=== PATIENT | female | born 1985 | race Two or more races ===

== ENCOUNTER 2019-10-29 14:36 | Emergency (ER) | payer MEDICAID ==
[2019-10-29] MEDS ORDERED: METOCLOPRAMIDE HCL ORAL SOLN 10 MG/10 ML UDCUP PO ONE (14:53)
[2019-10-29] MEDS ORDERED: ACETAMINOPHEN 325 MG TABLET PO ONE (14:53)
--- NOTE | 2019-10-29 14:56 | ER Document Report ---
ED Medical Screen (RME) - General Stated Complaint: VOMITING Time Seen by Provider: 10/29/19 14:49 Mode of Arrival: Ambulatory Information source: Patient, Relative - Notes: 33-year-old female G6, P5 presenting to the emergency department chief complaint of nausea and vomiting and headache in the setting of . Has been reports patient is approximately 8 weeks . He states she has been vomiting nonstop. Denies any vaginal bleeding. I have greeted and performed a rapid initial assessment of this patient. A comprehensive ED assessment and evaluation of the patient, analysis of test results and completion of the medical decision making process will be conducted by additional ED providers. I have specifically instructed the patient or family members with the patient to immediately return to any nursing staff should anything change in the patient's condition or with their chief complaint. - Related Data Allergies/Adverse Reactions: No Known Allergies Allergy (Unverified 10/29/19 14:50) Physical Exam - Vital signs Vitals: Temp Pulse Resp BP Pulse Ox 97.5 F 93 18 125/81 94 10/29/19 14:42 10/29/19 14:42 10/29/19 14:42 10/29/19 14:42 10/29/19 14:42 Course - Vital Signs Vital signs: Temp Pulse Resp BP Pulse Ox 97.5 F 93 18 125/81 94 10/29/19 14:42 10/29/19 14:42 10/29/19 14:42 10/29/19 14:42 10/29/19 14:42
[2019-10-29 15:36] LABS: ABSOLUTE LYMPHOCYTES (AUTO) 1.9 10^3/uL (0.5-4.7); ABSOLUTE MONOCYTES (AUTO) 0.4 10^3/uL (0.1-1.4); ABSOLUTE NEUT (AUTO) 3.9 10^3/uL (1.7-8.2); BASOPHILS % (AUTO) 0.3 % (0-2); EOSINOPHILS % (AUTO) 0.8 % (0-6); HEMATOCRIT 38.9 % (36.0-47.0); HEMOGLOBIN 13.6 g/dL (12.0-15.5); LYMPHOCYTES % (AUTO) 30.1 % (13-45); MEAN CORPUSCULAR HEMOGLOBIN 29.3 pg (27.0-33.4); MEAN CORPUSCULAR HGB CONC 35.1 g/dL (32.0-36.0); MEAN CORPUSCULAR VOLUME 84 fl (80-97); MONOCYTES % (AUTO) 6.6 % (3-13); PLATELET COUNT 397 10^3/uL (150-450); RED BLOOD COUNT 4.66 10^6/uL (3.72-5.28); RED CELL DISTRIBUTION WIDTH 13.4 % (11.5-14.0); SEGMENTED NEUTROPHILS % (AUTO) 62.2 % (42-78); TOTAL CELLS COUNTED % (AUTO) 100 %; WHITE BLOOD COUNT 6.3 10^3/uL (4.0-10.5)
[2019-10-29 15:45] LABS: APPEARANCE,URINE CLOUDY; BILIRUBIN,URINE NEGATIVE (NEGATIVE); COLOR,URINE AMBER; GLUCOSE, URINE 50 mg/dL (NEGATIVE); KETONES,URINE TRACE mg/dL (NEGATIVE); PROTEIN,URINE 100 mg/dL (NEGATIVE); URINE SPECIFIC GRAVITY 1.028
[2019-10-29 15:56] LABS: ALBUMIN 4.4 g/dL (3.5-5.0); ALKALINE PHOSPHATASE 62 U/L (38-126); ANION GAP 11 (5-19); ASPARTATE AMINO TRANSFERASE 19 U/L (14-36); BILIRUBIN,DIRECT 0.2 mg/dL (0.0-0.4); BILIRUBIN,TOTAL 0.6 mg/dL (0.2-1.3); BLOOD UREA NITROGEN 9 mg/dL (7-20); CALCIUM 9.9 mg/dL (8.4-10.2); CARBON DIOXIDE 26 mmol/L (22-30); CHLORIDE 100 mmol/L (98-107); GLUCOSE 105 mg/dL (75-110); POTASSIUM 4.2 mmol/L (3.6-5.0); TOTAL PROTEIN 8.2 g/dL (6.3-8.2)
--- NOTE | 2019-10-29 18:17 | ER Document Report ---
ED General - General Chief Complaint: Vomiting Stated Complaint: VOMITING Time Seen by Provider: 10/29/19 14:49 Mode of Arrival: Ambulatory Information source: Patient, Relative TRAVEL OUTSIDE OF THE [place] IN LAST 30 DAYS: No - HPI Onset: Other - over the last few days Onset/Duration: Gradual Quality of pain: No pain Severity: Moderate Pain Level: Denies Associated symptoms: Nausea, Vomiting, Other - acid reflux symptoms Exacerbated by: Other - vomiting Relieved by: Denies Similar symptoms previously: No Recently seen / treated by doctor: Yes Notes: 33 year old female who is 8 weeks here for intractable nausea and vomiting. The patient went to an outpatient clinic today and was given some multivitamins but no antiemetics. The patient says she is unable to keep anything down. The patient was given Reglan by a midlevel prior to me seeing her in the ER and the patient felt much better and was able to tolerate POs. The patient denies fevers, chills, sweats, vaginal bleeding, abdominal pain. - Related Data Allergies/Adverse Reactions: No Known Allergies Allergy (Unverified 10/29/19 14:50) Home Medications: B6 Past Medical History - General Information source: Patient, Relative - - Social History Smoking Status: Never Smoker Chew tobacco use (# tins/day): No Frequency of alcohol use: None Drug Abuse: None Lives with: Family Family History: Reviewed & Not Pertinent Patient has suicidal ideation: No Patient has homicidal ideation: No - Past Medical History Cardiac Medical History: Reports: None Pulmonary Medical History: Reports: None Neurological Medical History: Reports: None Review of Systems - Review of Systems Constitutional: No symptoms reported EENT: No symptoms reported Cardiovascular: No symptoms reported Respiratory: No symptoms reported Gastrointestinal: Nausea, Vomiting Genitourinary: No symptoms reported Female Genitourinary: No symptoms reported Musculoskeletal: No symptoms reported Skin: No symptoms reported Hematologic/Lymphatic: No symptoms reported Neurological/Psychological: No symptoms reported Physical Exam - Vital signs Vitals: Temp Pulse Resp BP Pulse Ox 97.5 F 93 18 125/81 94 10/29/19 14:42 10/29/19 14:42 10/29/19 14:42 10/29/19 14:42 10/29/19 14:42 - Notes Notes: GENERAL: Well-appearing, well-nourished and in no acute distress. HEAD: Atraumatic, normocephalic. EYES: Pupils equal round and reactive to light, extraocular movements intact, sclera anicteric, conjunctiva are normal. ENT: Nares patent, oropharynx clear without exudates. Moist mucous membranes. NECK: Normal range of motion, supple without lymphadenopathy or JVD. LUNGS: Breath sounds clear to auscultation bilaterally and equal. No wheezes rales or rhonchi. HEART: Regular rate and rhythm without murmurs, rubs or gallops. ABDOMEN: Soft, nontender, normoactive bowel sounds. No guarding, no rebound. No masses appreciated. EXTREMITIES: Normal range of motion, no pitting or edema. No clubbing or cyanosis. NEUROLOGICAL: Cranial nerves II through XII grossly intact. Normal speech, normal gait. PSYCH: Normal mood, normal affect. SKIN: Warm, Dry, normal turgor, no rashes or lesions noted. Course - Re-evaluation Re-evalutation: 10/29/19 18:23 The patient was apparently very nauseated and unable to keep anything down in the last few days. Patient felt better after Reglan which was given by a [facility] provider before I saw the patient. Spoke with the patient and her about nausea/vomiting in . Will prescribe short course of Zofran and have the patient use it only in extreme situations. Patient has no SALES ESTIMATOR at the moment so will refer to the SALES ESTIMATOR emulsion coater as an outpatient. Patient is already taking vitamins. 10/29/19 18:27 - Vital Signs Vital signs: Temp Pulse Resp BP Pulse Ox 97.5 F 93 18 125/81 94 10/29/19 14:42 10/29/19 14:42 10/29/19 14:42 10/29/19 14:42 10/29/19 14:42 - Laboratory Result Diagrams: 10/29/19 15:15 10/29/19 15:15 Laboratory results interpreted by me: 10/29/19 10/29/19 15:05 15:15 Sodium 136.8 L Beta HCG, Quant 956227.00 H Urine Protein 100 H Urine Glucose (UA) 50 H Urine Ketones TRACE H Urine Blood MODERATE H Urine Urobilinogen 2.0 H Discharge - Discharge Clinical Impression: Hyperemesis arising during Condition: Stable Disposition: HOME, SELF-CARE Instructions: Hyperemesis Gravidarum ([facility]) Additional Instructions: Only use Zofran for extreme nausea/vomiting. Drink plenty of fluids in the days to come. Follow up with an SALES ESTIMATOR doctor as soon as possible for care. If you dont have an SALES ESTIMATOR, you can follow up with Dr. Silva. Prescriptions: Ondansetron [Zofran Odt 4 mg Tablet] 1 tab PO Q8H PRN #10 tab.rapdis PRN Reason: For Nausea/Vomiting Referrals: GOKUL SILVA MD [ACTIVE PROVISIONAL STAFF] - Follow up as needed
[2019-10-29 18:40] VITALS: BP 104/74
== END 2019-10-29 18:37 | disposition home or self-care (01) ==
LOC: ER 14:36
DX: O21.0 Mild hyperemesis gravidarum (principal); Z3A.08 8 weeks gestation of pregnancy
CPT/HCPCS: 36415; 80053; 81001; 84702; 85025; 99284

== ENCOUNTER 2019-11-26 19:06 | Emergency (ER) | payer SELFPAY ==
[2019-11-26 19:16] VITALS: BP 117/80
--- NOTE | 2019-11-26 19:56 | ER Document Report ---
ED Medical Screen (RME) - General Chief Complaint: OB Problem (>20wk) Stated Complaint: OB PROBLEM Time Seen by Provider: 11/26/19 19:51 Mode of Arrival: Ambulatory Information source: Patient, Relative Notes: 34-year-old female presents emergency department approximately 10 weeks last menstrual period 09/03 G6, P5 with complaints of abdominal pain. Denies fever vomiting diarrhea. Denies vaginal bleeding. Denies pain with void. I have greeted and performed a rapid initial assessment of this patient. A comprehensive ED assessment and evaluation of the patient, analysis of test results and completion of the medical decision making process will be conducted by additional ED providers. TRAVEL OUTSIDE OF THE [place] IN LAST 30 DAYS: No - Related Data Allergies/Adverse Reactions: No Known Allergies Allergy (Verified 11/26/19 19:50) Physical Exam - Vital signs Vitals: Temp Pulse Resp BP Pulse Ox 98.0 F 92 14 117/80 96 11/26/19 19:13 11/26/19 19:13 11/26/19 19:13 11/26/19 19:13 11/26/19 19:13 Course - Vital Signs Vital signs: Temp Pulse Resp BP Pulse Ox 98.0 F 92 14 117/80 96 11/26/19 19:13 11/26/19 19:13 11/26/19 19:13 11/26/19 19:13 11/26/19 19:13
[2019-11-26 20:50] LABS: ALBUMIN 4.1 g/dL (3.5-5.0); ALKALINE PHOSPHATASE 76 U/L (38-126); ANION GAP 9 (5-19); ASPARTATE AMINO TRANSFERASE 23 U/L (14-36); BILIRUBIN,DIRECT 0.2 mg/dL (0.0-0.4); BILIRUBIN,TOTAL 0.4 mg/dL (0.2-1.3); BLOOD UREA NITROGEN 9 mg/dL (7-20); CALCIUM 9.4 mg/dL (8.4-10.2); CARBON DIOXIDE 28 mmol/L (22-30); CHLORIDE 100 mmol/L (98-107); GLUCOSE 96 mg/dL (75-110); POTASSIUM 4.1 mmol/L (3.6-5.0)
--- NOTE | 2019-11-26 21:17 | RADIOLOGY REPORT (SQ) ---
EXAM DESCRIPTION: US LESS THAN 14 WEEKS COMPLETED DATE/TME: 11/26/2019 19:54 CLINICAL HISTORY: 34 years, Female, abd pain, LMP 09/03 COMPARISON: None. TECHNIQUE: Axial 2-D grayscale images of the pelvis were acquired. Doppler was utilized. LIMITATIONS: None. FINDINGS: Uterus measures 13.6 x 11.9 x 12.5 cm in size. Cervix is closed, measuring 3.5 cm in length. An intrauterine gestational sac is identified with measurements as follows: [employer]-rump length: 6.7 cm heart rate: 157 bpm Yolk sac: Not visualized Estimated gestational age is 13 weeks and zero days for an estimated date of delivery of 06/02/2020. Right ovary measures 2.8 x 2.3 x 1.7 cm in size. Left ovary measures 2.9 x 2.6 x 1.9 cm in size. Both appear normal in echogenicity. Visualized portions of the placenta show no suspicious finding. No significant free fluid is identified within the imaged pelvis. Amniotic fluid index appears grossly within normal limits. Limited imaging of the gallbladder reveals a gallstone within the gallbladder lumen. IMPRESSION: Single live intrauterine , as above. No acute findings. Cholelithiasis. copyright 2010 [employer]- All Rights Reserved
[2019-11-26 21:38] LABS: ABSOLUTE EOSINOPHILS # (AUTO) 0.1 10^3/uL (0.0-0.6); ABSOLUTE LYMPHOCYTES (AUTO) 1.3 10^3/uL (0.5-4.7); ABSOLUTE MONOCYTES (AUTO) 0.5 10^3/uL (0.1-1.4); ABSOLUTE NEUT (AUTO) 3.2 10^3/uL (1.7-8.2); BASOPHILS % (AUTO) 0.3 % (0-2); EOSINOPHILS % (AUTO) 1.6 % (0-6); HEMATOCRIT 38.1 % (36.0-47.0); HEMOGLOBIN 13.3 g/dL (12.0-15.5); LYMPHOCYTES % (AUTO) 26.2 % (13-45); MEAN CORPUSCULAR HEMOGLOBIN 29.4 pg (27.0-33.4); MEAN CORPUSCULAR VOLUME 84 fl (80-97); MONOCYTES % (AUTO) 9.2 % (3-13); PLATELET COUNT 336 10^3/uL (150-450); RED BLOOD COUNT 4.54 10^6/uL (3.72-5.28); RED CELL DISTRIBUTION WIDTH 13.3 % (11.5-14.0); SEGMENTED NEUTROPHILS % (AUTO) 62.7 % (42-78); TOTAL CELLS COUNTED % (AUTO) 100 %
[2019-11-26 22:01] LABS: APPEARANCE,URINE TURBID; BILIRUBIN,URINE NEGATIVE (NEGATIVE); COLOR,URINE YELLOW; GLUCOSE, URINE 50 mg/dL (NEGATIVE); KETONES,URINE NEGATIVE (NEGATIVE); LEUKOCYTE ESTERASE,URINE NEGATIVE (NEGATIVE); NITRITE,URINE NEGATIVE (NEGATIVE); PROTEIN,URINE 100 mg/dL (NEGATIVE)
== END 2019-11-27 00:28 | disposition left against medical advice (07) ==
LOC: ER 19:06
DX: O26.891 Other specified pregnancy related conditions, first trimester (principal); R10.9 Unspecified abdominal pain; Z3A.11 11 weeks gestation of pregnancy; Z53.20 Procedure and treatment not carried out because of patient's decision for unspecified reasons
CPT/HCPCS: 36415; 76801; 80053; 81001; 83690; 84702; 85025; 99281

== ENCOUNTER 2020-02-04 16:54 | Outpatient (CLI) | payer SELFPAY | END 2020-02-04 18:30 | disposition home or self-care (01) | LOC: LC 16:54 | PROVIDERS: ATTEND Obstetrics & Gynecology | DX: Z34.92 Encounter for supervision of normal pregnancy, unspecified, second trimester (principal) ==

== ENCOUNTER 2020-06-06 10:26 | Inpatient (IN) | payer MEDICAID ==
[2020-06-06] MEDS ORDERED: LIDOCAINE 1% INJ-PF (10 MG/ML) 30 ML SDV ONE (10:35)
[2020-06-06] MEDS ORDERED: OXYTOCIN 10 UNIT/ML VIAL ONE (10:35)
[2020-06-06] MEDS ORDERED: OXYTOCIN/0.9 % SODIUM CHLORIDE 30 UNIT/500 ML RTUINJ ONE (10:35)
[2020-06-06] MEDS ORDERED: MISOPROSTOL 0.2 MG TABLET ONE (10:35)
--- NOTE | 2020-06-06 10:57 | Admission Physical ---
Datetime Report Generated by CPN: 06/06/2020 10:56 CURRENT ADMISSION Chief Complaint: Uterine Contractions Indication for Induction: Not Applicable Admit Impression : Term, Intrauterine ; Active Labor; Intact Membranes Admit Plan: Admit to Unit; Initiate Labor Protocol Admit Plan- Other: AROM performed at 1030 ALLERGIES Medication Allergies: No Known Allergies (02/04/2020) OBSTETRICAL HISTORY EDC: 06/02/2020 00:00 : 6 Para: 5 Livin PHYSICAL EXAM General: Normal HEENT: Normal Neurologic: Normal Thyroid: Normal Heart: Normal Lungs: Normal Breast: Normal Back: Normal Abdomen: Normal Genitourinary Exam: Normal Extremities: Normal DTRs: Normal Pelvic Type: Adequate Vital Signs: Reviewed; Within Normal Limits VAGINAL EXAM Dilatation: 9 Effacement: 100 Station: 0 MEMBRANES Membranes: Ruptured Amniotic Fluid Color: Clear FETUS A EGA: 40.4 Monitoring: External US FHR- Baseline: 140 Variability: Moderate 6-25bpm Accelerations: 15X15 Decelerations: None FHR Category: Category I Estimated Weight (gm): 3900 Presentation: Vertex Admit Comment: Delivery of female occurred within 20 min of arrival to unit INFORMED CONSENT Signature: with User ID: [email or web address]
[2020-06-06] MEDS ORDERED: PSEUDOEPHEDRINE HCL 30 MG TABLET PO PRN (10:59)
[2020-06-06] MEDS ORDERED: PROMETHAZINE HCL 25 MG SUPP.RECT PR PRN (10:59)
[2020-06-06] MEDS ORDERED: DIPHENHYDRAMINE HCL 25 MG CAPSULE PO PRN (10:59)
[2020-06-06] MEDS ORDERED: OXYTOCIN/0.9 % SODIUM CHLORIDE 30 UNIT/500 ML RTUINJ IV PRN (10:59)
[2020-06-06] MEDS ORDERED: MEASLES,MUMPS&RUBELLA VACC/PF 0.5 ML VIAL SUBCUT PRN (10:59)
[2020-06-06] MEDS ORDERED: DIBUCAINE 1% OINTMENT 28 GM TP PRN (10:59)
[2020-06-06] MEDS ORDERED: ACETAMINOPHEN 650 MG SUPP.RECT PR PRN (10:59)
[2020-06-06] MEDS ORDERED: NA PHOS,M-B/NA PHOS,DI-BA (ADULT) 133 ML ENEMA PR PRN (10:59)
[2020-06-06] MEDS ORDERED: MAGNESIUM HYDROXIDE SUSP 30 ML UDCUP PO PRN (10:59)
[2020-06-06] MEDS ORDERED: DIPH/PERTUSS(ACELL)/TETANUS VAC/PF 0.5 ML SYR (>=10YO) IM PRN (10:59)
[2020-06-06] MEDS ORDERED: ZOLPIDEM TARTRATE 5 MG TABLET PO PRN (10:59)
[2020-06-06] MEDS ORDERED: PROMETHAZINE HCL 25 MG TABLET PO PRN (10:59)
[2020-06-06] MEDS ORDERED: GLYCERIN/WITCH HAZEL LEAF 1 EACH MED..WIPE TP PRN (10:59)
[2020-06-06] MEDS ORDERED: PROMETHAZINE HCL INJ 25 MG/1 ML VIAL IV PRN (10:59)
[2020-06-06] MEDS ORDERED: ACETAMINOPHEN WITH CODEINE #3 TABLET PO PRN (10:59)
[2020-06-06] MEDS ORDERED: RINGERS SOLUTION,LACTATED 1,000 ML IV ONE (11:04)
[2020-06-06] MEDS ORDERED: IBUPROFEN 800 MG TABLET ONE (11:45)
[2020-06-06 12:05] LABS: ABSOLUTE LYMPHOCYTES (AUTO) 1.4 10^3/uL (0.5-4.7); ABSOLUTE MONOCYTES (AUTO) 0.6 10^3/uL (0.1-1.4); ABSOLUTE NEUT (AUTO) 4.1 10^3/uL (1.7-8.2); BASOPHILS % (AUTO) 0.4 % (0-2); EOSINOPHILS % (AUTO) 0.5 % (0-6); HEMATOCRIT 32.5 % (36.0-47.0); HEMOGLOBIN 10.7 g/dL (12.0-15.5); LYMPHOCYTES % (AUTO) 22.4 % (13-45); MEAN CORPUSCULAR HGB CONC 32.9 g/dL (32.0-36.0); MEAN CORPUSCULAR VOLUME 76 fl (80-97); MONOCYTES % (AUTO) 9.4 % (3-13); PLATELET COUNT 224 10^3/uL (150-450); RED BLOOD COUNT 4.27 10^6/uL (3.72-5.28); RED CELL DISTRIBUTION WIDTH 17.9 % (11.5-14.0); SEGMENTED NEUTROPHILS % (AUTO) 67.3 % (42-78); TOTAL CELLS COUNTED % (AUTO) 100 %; WHITE BLOOD COUNT 6.1 10^3/uL (4.0-10.5)
[2020-06-06] MEDS ORDERED: METHYLERGONOVINE MALEATE INJ/PF 0.2 MG/1 ML AMPULE ONE (14:06)
[2020-06-06] MEDS ORDERED: AMPICILLIN SOD/SULBACTAM 3 GM VIAL IV SCH (14:15)
[2020-06-06] MEDS: BENZOCAINE/MENTHOL AEROSOL SPRAY 56 ML TOP PRN (14:16)
[2020-06-06] MEDS: ACETAMINOPHEN WITH CODEINE #3 TABLET PO PRN (14:17)
[2020-06-06] MEDS: IBUPROFEN 800 MG TABLET PO SCH ×2 (14:17→22:06)
[2020-06-06] MEDS ORDERED: METHYLERGONOVINE MALEATE 0.2 MG TABLET ONE (14:19)
[2020-06-06] MEDS: METHYLERGONOVINE MALEATE 0.2 MG TABLET PO SCH ×3 (14:20→22:07)
--- NOTE | 2020-06-06 14:31 | Birth Certificate Data ---
Cert Data Datetime Report Generated by CPN: 06/06/2020 14:31 CERTIFICATE DATA 47a. Care: No (01/20/2020 17:40:Loulou Crump RN) 47b. Date of First Visit: 03/20/2020 00:00 (01/20/2020 17:40:Joanna Galindo RN) 47c. Date of Last Visit: 06/04/2020 00:00 (01/20/2020 17:40:Joanna Galindo RN) 47d. Number of Visits: 8 (01/20/2020 17:40:Joanna Galindo RN) 48a. Number of Prev Live Births: 5 (01/20/2020 17:40:Joanna Galindo RN) 48b. Now Livin (01/20/2020 17:40:Loulou Crump RN) 48c. Live Births Now : 0 (01/20/2020 17:40:QS system process) 48d. Date of Last Live : 06/08/2019 00:00 (01/20/2020 17:40:Joanna Galindo RN) 48e. Losses: 0 (01/20/2020 17:40:Joanna Galindo RN) RISK FACTORS IN THIS 49a. Diabetes: No (01/20/2020 17:40:Joanna Galindo RN) 49b. Hypertension: No (01/20/2020 17:40:Joanna Galindo RN) 49c. Previous Births: 0 (01/20/2020 17:40:Joanna Galindo RN) 49d. Stillborns: No (01/20/2020 17:40:Joanna Galindo RN) 49d. IUGR: No (01/20/2020 17:40:Joanna Galindo RN) 49e. Infertility Treatment: No (01/20/2020 17:40:Joanna Galindo RN) 49f. Previous Cesareans: 0 (01/20/2020 17:40:Joanna Galindo RN) Mother's Height 50b. Height Inches: 66 (02/04/2020 17:33:QS system process) Mother's Weight 51a. Pre- Weight (lbs): 187 (01/20/2020 17:40:Joanna Galindo RN) 51b. Weight at Delivery (lbs): 180 (02/04/2020 17:33:QS system process) Infections Present/Treated 53a. Gonorrhea: No (01/20/2020 17:40:Joanna Galindo RN) Results this Hospital Visit : Negative (01/20/2020 17:40:Joanna Galindo RN) 53b. Syphilis: No (01/20/2020 17:40:Joanna Galindo RN) 53c. Chlamydia: No (01/20/2020 17:40:Joanna Galindo RN) Results this Hospital Visit: Negative (01/20/2020 17:40:Joanna Galindo RN) 53d. Hepatitis B: No (01/20/2020 17:40:Joanna Galindo RN) Results this Hospital Visit: Negative (01/20/2020 17:40:Joanna Galindo RN) 53e. Hepatitis C: Negative (01/20/2020 17:40:Joanna Galindo RN) 53h. Mother Tested for HBsAG: Yes (01/20/2020 17:40:Joanna Galindo RN) 53i. Date Tested: 04/08/2020 00:00 (01/20/2020 17:40:Joanna Galindo RN) 53j. Test Result: Negative (01/20/2020 17:40:Joanna Galindo RN) Obstetric Procedures 54a, b, c. Obstetric Procedures: Ultrasound (01/20/2020 17:40:Brit Rogers RN) Cigarette Smoking 55a. 3 Months Before Preg - Ci (01/20/2020 17:40:Brit Rogers RN) 55b. 1st Trimester of Preg- Ci (01/20/2020 17:40:Brit Rogers RN) 55c. 2nd Trimester of Preg- Ci (01/20/2020 17:40:Brit Rogers RN) 55d. 3rd Trimester of Preg- Ci (01/20/2020 17:40:Brit Rogers RN) Onset of Labor 56a. PROM >12 Hrs: 0.12 (01/20/2020 17:40:QS system process) 56b. Precipitous Labor <3 Hrs: 4 (01/20/2020 17:40:QS system process) 56c. Prolonged Labor > 20 Hrs: 4 (01/20/2020 17:40:QS system process) 57a. Induction of Labor: N/A (01/20/2020 17:40:Joanna Galindo RN) 57c. Non-Vertex Presentation A: Vertex (01/20/2020 17:40:Joanna Galindo RN) 57d. Steroids - Lung Mat: None (01/20/2020 17:40:Joanna Galindo RN) 57d. Steroids - Lung Mat: Not Applicable (01/20/2020 17:40:Joanna Galindo RN) 57f. Mat [place] or Temp >100.4: 98.7 (01/20/2020 17:40:Brit Rogers RN) 57g. Moderate/Heavy Meconium: Clear (06/06/2020 10:37:Joanna Galindo RN) 57h. Intolerance of Labor: N/A (01/20/2020 17:40:Joanna aGlindo RN) : N/A (01/20/2020 17:40:Joanna Galindo RN) 57i. Epidural/Spinal Anesthesia: None (01/20/2020 17:40:Joanna Galindo RN) Method of Delivery 58a. Forceps - Unsuccessful A: N/A (01/20/2020 17:40:Joanna Galindo RN) 58b. Vacuum - Unsuccessful A: N/A (01/20/2020 17:40:Joanna Galindo RN) 58c. Presentation at 58c. Presentation at - A : Vertex (01/20/2020 17:40:Joanna Galindo RN) 58c. Presentation at - A : N/A (01/20/2020 17:40:Joanna Galindo RN) 58c. Presentation at - A : Cephalic (01/20/2020 17:40:Joanna Galindo RN) Final Route and Method of Del 58d. Baby A Route/Delivery: Vaginal (06/06/2020 10:44:Joanna Galindo RN) 58e. Trial of Labor Attempted: No (01/20/2020 17:40:Joanna Galindo RN) 58e. Trial of Labor Attempted A: N/A (01/20/2020 17:40:Joanna Galindo RN) 58e. Trial of Labor Attempted B: N/A (01/20/2020 17:40:Joanna Galindo RN) Maternal Morbidity 59b. 3rd or 4th Degree Lacs: None (01/20/2020 17:40:Roma Conklin MD ([facility])) Birthweight Baby A: 4403 (01/20/2020 17:40:Saida Johnson RN) 60a. Pounds : 9 (01/20/2020 17:40:QS system process) 60b. Ounces: 11 (01/20/2020 17:40:QS system process) 61. GA at Delivery Baby A: 40.4 (01/20/2020 17:40:Joanna Galindo RN) : Full Term- 39- 40.6 Weeks (01/20/2020 17:40:QS system process) 62a. 5 Minute Baby A: 9 (01/20/2020 17:40:QS system process)
--- NOTE | 2020-06-06 14:31 | Delivery Summary ---
Del Sum A-C Datetime Report Generated by CPN: 06/06/2020 14:31 DELIVERY PERSONNEL DELIVERY PERSONNEL: [id number] Delivery Doctor:: Roma Conklin MD Labor and Delivery Nurse:: Brit Rogers RNserologist Nurse:: Joanna ThorntonNAYELY benjamin MATERNAL INFORMATION Delivery Anesthesia: None Medications After Delivery: Pitocin 30 Units in 500ml NS/D5W; Cytotec 1000mcg Per Rectum/Vagina Estimated Blood Loss (ml): 150 Maternal Complications: None LABOR SUMMARY EDC: 06/02/2020 00:00 No. Babies in Womb: 1 Attempted: No Labor Anesthesia: None LABOR INFORMATION Reason for Induction: Not Applicable Onset of Labor: 06/06/2020 06:00 Complete Dilatation: 06/06/2020 10:41 Oxytocin: N/A Group B Beta Strep: negative Antibiotics # of Doses: n/a Name of Antibiotic Given: n/a Steroids Given: None Reason Steroids Not Administered: Not Applicable MEMBRANES Membranes Rupture Method: Artificial Rupture of Membranes: 06/06/2020 10:37 Length of Rupture (hr): 0.12 Amniotic Fluid Color: Clear Amniotic Fluid Amount: Moderate Amniotic Fluid Odor: Normal STAGES OF LABOR Stage 1 hr: 4 Stage 1 min: 41 Stage 2 hr: 0 Stage 2 min: 3 Stage 3 hr: 0 Stage 3 min: 5 Total Time in Labor hr: 4 Total Time in Labor min: 49 VAGINAL DELIVERY Episiotomy: None Laceration #1: None Laceration Extension #1: N/A Laceration Repair: Not Applicable Sponge Count Correct: Yes Sharps Count Correct: Yes CSECTION DELIVERY Primary Indication: N/A Secondary Indication: N/A CSection Incidence: N/A Labor: N/A Elective: N/A CSection Incision: N/A BABY A INFORMATION Infant Delivery Date/Time: 06/06/2020 10:44 Method of Delivery: Vaginal Nurse Controlled Delivery: No Born in Route : No : N/A Forceps: N/A Vacuum Extraction: N/A Shoulder Dystocia : No PRESENTATION/POSITION BABY A Presentation: Cephalic Cephalic Presentation: Vertex Vertex Position: Left Occipital Anterior Breech Presentation: N/A PLACENTA INFORMATION BABY A Placenta Delivery Time : 06/06/2020 10:49 Placenta Method of Delivery: Spontaneous Placenta Status: Delivered SCORES BABY A Heart Rate 1 min: >100 bpm Resp Effort 1 min: Good Cry Reflex Irritability 1 min: Cough or Sneeze or Pulls Away Muscle Tone 1 min: Active Motion Color 1 min: Body [place], Extremities Blue Resuscitation Effort 1 min: Tactile Stimulation SCORE 1 MIN: 9 Heart Rate 5 min: >100 bpm Resp Effort 5 min: Good Cry Reflex Irritability 5 min: Cough or Sneeze or Pulls Away Muscle Tone 5 min: Active Motion Color 5 min: Body [place], Extremities Blue Resuscitation Effort 5 min: N/A SCORE 5 MIN: 9 INFANT INFORMATION BABY A Gestational Age at Delivery: 40.4 Gestational Status: Full Term- 39- 40.6 Weeks Outcome : Liveborn Condition : Stable Infant Sex: Female IDENTIFICATION BABY A Infant Verification Date/Time: 06/06/2020 11:17 ID Band Number: [id number] Mother's Name Verified: Yes RN Verifying : B Josie RN Additional Verifying Personnel: B Alex RN WEIGHT/LENGTH BABY A Birthweight (gm): 4403 Weight (lb): 9 Infant Weight (oz): 11 Infant Length (in): 19.75 Length (cm): 50.17 CORD INFORMATION BABY A No. Cord Vessels: 3 Nuchal Cord : N/A Cord Blood Taken: Yes-For Storage (Mom's Blood type +) Suction: None ASSESSMENT BABY A Complications: None Physical Findings at Delivery: Within Normal Limits Infant Respirations: Appears Normal Skin to Skin: Yes Care By: Jefry Johnson, NAYELY Transferred To: Remains with Mother BABY B INFORMATION : N/A SIGNATURES Signature: with User ID: [email or web address]
[2020-06-06] MEDS: AMPICILLIN SODIUM/SULBACTAM NA 3 GM in NORMAL SALINE 100 ML IV SCH (17:13)
[2020-06-06] MEDS: DOCUSATE SODIUM 100 MG CAPSULE PO SCH (17:13)
[2020-06-06] MEDS: FERROUS SULFATE 325 MG TABLET PO SCH (17:13)
[2020-06-06] MEDS: FAMOTIDINE 20 MG TABLET PO SCH (22:05)
[2020-06-07] MEDS: AMPICILLIN SODIUM/SULBACTAM NA 3 GM in NORMAL SALINE 100 ML IV SCH ×3 (02:09→17:55)
[2020-06-07] MEDS: METHYLERGONOVINE MALEATE 0.2 MG TABLET PO SCH ×6 (02:10→22:08)
[2020-06-07] MEDS: IBUPROFEN 800 MG TABLET PO SCH ×3 (05:29→21:45)
[2020-06-07 06:55] LABS: HEMATOCRIT 34.4 % (36.0-47.0); HEMOGLOBIN 11.2 g/dL (12.0-15.5); MEAN CORPUSCULAR HEMOGLOBIN 24.9 pg (27.0-33.4); MEAN CORPUSCULAR HGB CONC 32.6 g/dL (32.0-36.0); MEAN CORPUSCULAR VOLUME 76 fl (80-97); PLATELET COUNT 248 10^3/uL (150-450); RED BLOOD COUNT 4.52 10^6/uL (3.72-5.28); RED CELL DISTRIBUTION WIDTH 18.6 % (11.5-14.0); WHITE BLOOD COUNT 7.6 10^3/uL (4.0-10.5)
[2020-06-07] MEDS: FAMOTIDINE 20 MG TABLET PO SCH ×2 (09:12→21:46)
[2020-06-07] MEDS: SENNOSIDES/DOCUSATE 8.6-50 MG 1 EACH TABLET PO SCH (09:12)
[2020-06-07] MEDS: DOCUSATE SODIUM 100 MG CAPSULE PO SCH ×2 (09:12→17:55)
[2020-06-07] MEDS: FERROUS SULFATE 325 MG TABLET PO SCH ×2 (09:13→17:55)
[2020-06-07] MEDS: PRENATAL VITAMIN W DHA CAPSULE PO SCH (09:45)
--- NOTE | 2020-06-07 09:45 | PDOC PROGRESS REPORT ---
Subjective-OB Progress Note for:: 06/07/20 Subjective: Hsb at BS, no c/o, bottle feeding, voiding, hsb at BS and said everything ok Physical Exam (OB) Vital Signs: Temp Pulse Resp BP Pulse Ox 97.5 F 87 17 119/72 98 06/07/20 09:19 06/07/20 09:19 06/07/20 09:19 06/07/20 09:19 06/07/20 09:19 Intake & Output 06/06/20 06/07/20 06/08/20 06:59 06:59 06:59 Intake Total 100 Output Total 0 Balance 100 - PIH/Pre-Eclampsia Clonus: Negative Headache: Absent Epigastric Pain: No Visual Changes: No - Maternal Morbidity 59. Maternal Morbidity (serious complications experinced by the mother associated with labor and delivery: None of the above - Lochia Lochia Amount: Scant < 10 ml Lochia Color: Rubra/Red - Abdomen Description: Soft, Round Hernia Present: No Fundal Description: Firm, Midline Fundal Height: u/u - u/2 Objective-Diagnostic Laboratory: 06/07/20 06:44 06/06/20 06/06/20 06/07/20 11:50 11:50 06:44 WBC 6.1 7.6 RBC 4.27 4.52 Hgb 10.7 L 11.2 L Hct 32.5 L 34.4 L MCV 76 L 76 L MCH 25.0 L 24.9 L MCHC 32.9 32.6 RDW 17.9 H 18.6 H Plt Count 224 248 Seg Neutrophils % 67.3 Blood Type B POSITIVE Antibody Screen NEGATIVE Assessment and Plan(PN) - Assessment and Plan (1) Post-dates , delivered, current hospitalization Is this a current diagnosis for this admission?: Yes (2) Vaginal delivery Is this a current diagnosis for this admission?: Yes - Time Spent with Patient Time with patient: Less than 15 minutes Medications reviewed and adjusted accordingly: Yes - Disposition Anticipated Discharge Disposition: Home, Self Care Anticipated Discharge Timeframe: within 48 hours
[2020-06-07] MEDS: ACETAMINOPHEN WITH CODEINE #3 TABLET PO PRN ×2 (18:01→23:17)
[2020-06-08] MEDS: METHYLERGONOVINE MALEATE 0.2 MG TABLET PO SCH ×4 (02:33→13:10)
[2020-06-08] MEDS: IBUPROFEN 800 MG TABLET PO SCH ×2 (06:23→13:10)
[2020-06-08 07:56] VITALS: BP 121/76
[2020-06-08] MEDS ORDERED: METHYLERGONOVINE MALEATE 0.2 MG TABLET ONE ×2 (09:37→13:01)
[2020-06-08] MEDS: DOCUSATE SODIUM 100 MG CAPSULE PO SCH (09:40)
[2020-06-08] MEDS: FERROUS SULFATE 325 MG TABLET PO SCH (09:43)
[2020-06-08] MEDS: SENNOSIDES/DOCUSATE 8.6-50 MG 1 EACH TABLET PO SCH (09:43)
[2020-06-08] MEDS: PRENATAL VITAMIN W DHA CAPSULE PO SCH (09:43)
[2020-06-08] MEDS: FAMOTIDINE 20 MG TABLET PO SCH (09:43)
--- NOTE | 2020-06-08 11:25 | PDOC DISCHARGE SUMMARY ---
Impression - Admit/DC Date/PCP Admission Date/Primary Care Provider: 06/06/20 10:39 GOKUL GOTTLIEB MD Discharge Date: 06/08/20 - PP Day #2, doing well, B+, Rubella immune, bottlefeeding. - Discharge Diagnosis (1) PPH ( hemorrhage) Is this a current diagnosis for this admission?: Yes - Additional Information Resuscitation Status: Full Code Discharge Diet: As Tolerated, Regular Discharge Activity: Activity As Tolerated, No Lifting Over 10 Pounds, Pelvic Rest Referrals: GOKUL GOTTLIEB MD [Primary Care Provider] - Prescriptions: Ibuprofen [Motrin 800 mg Tablet] 800 mg PO Q8 #60 tablet Home Medications: Ibuprofen [Motrin 800 mg Tablet] 800 mg PO Q8 #60 tablet 06/08/20 Vit/Dha [ Multi + Dha Capsule] 1 cap PO DAILY capsule 06/08/20 HPI Reason(s) for Admission: Onset of Labor Procedures: Ultrasound Intrapartum Procedure(s): Spontaneous Vaginal Delivery Complication(s): Hemorrhage-Uterine Atony Hospital Course 59. Maternal Morbidity (serious complications experinced by the mother associated with labor and delivery: None of the above Results Laboratory Results: WBC 7.6 10^3/uL (4.0-10.5) 06/07/20 06:44 RBC 4.52 10^6/uL (3.72-5.28) 06/07/20 06:44 Hgb 11.2 g/dL (12.0-15.5) L 06/07/20 06:44 Hct 34.4 % (36.0-47.0) L 06/07/20 06:44 MCV 76 fl (80-97) L 06/07/20 06:44 MCH 24.9 pg (27.0-33.4) L 06/07/20 06:44 MCHC 32.6 g/dL (32.0-36.0) 06/07/20 06:44 RDW 18.6 % (11.5-14.0) H 06/07/20 06:44 Plt Count 248 10^3/uL (150-450) 06/07/20 06:44 Lymph % (Auto) 22.4 % (13-45) 06/06/20 11:50 [place] % (Auto) 9.4 % (3-13) 06/06/20 11:50 Eos % (Auto) 0.5 % (0-6) 06/06/20 11:50 Baso % (Auto) 0.4 % (0-2) 06/06/20 11:50 Absolute Neuts (auto) 4.1 10^3/uL (1.7-8.2) 06/06/20 11:50 Absolute Lymphs (auto) 1.4 10^3/uL (0.5-4.7) 06/06/20 11:50 Absolute Monos (auto) 0.6 10^3/uL (0.1-1.4) 06/06/20 11:50 Absolute Eos (auto) 0.0 10^3/uL (0.0-0.6) 06/06/20 11:50 Absolute Basos (auto) 0.0 10^3/uL (0.0-0.2) 06/06/20 11:50 Seg Neutrophils % 67.3 % (42-78) 06/06/20 11:50 RPR NONREACTIVE (NONREACTIVE) 06/06/20 11:50 Blood Type B POSITIVE 06/06/20 11:50 Antibody Screen NEGATIVE 06/06/20 11:50 Plan Plan of Treatment: d/c home, f/up with [facility] in 4 wks Time Spent: Less than 30 Minutes
[2020-06-08] MEDS: BENZOCAINE/MENTHOL AEROSOL SPRAY 56 ML TOP PRN (13:31)
== END 2020-06-08 15:25 | disposition home or self-care (01) | DRG 806 ==
LOC: LC 10:26 → LR 10:39 → 2S 13:42
PROVIDERS: ADMIT Obstetrics & Gynecology; ATTEND Obstetrics & Gynecology
PROC: 10E0XZZ Delivery of Products of Conception, External Approach (ICD-10-PCS; principal; 2020-06-06)
PROC: 10907ZC Drainage of Amniotic Fluid, Therapeutic from Products of Conception, Via Natural or Artificial Opening (ICD-10-PCS; 2020-06-06)
DX: O48.0 Post-term pregnancy (principal); O72.1 Other immediate postpartum hemorrhage; Z37.0 Single live birth; Z11.59 Encounter for screening for other viral diseases; Z3A.40 40 weeks gestation of pregnancy
CPT/HCPCS: 36415; 85025; 85027; 86592; 86850; 86900; 86901; 90715; J0295; J2550; J2590; J3490; J7050